=== PATIENT | male | born 1960 | race Caucasian/White ===

== ENCOUNTER 2017-05-01 23:25 | Inpatient (IN) | payer BC ==
[~2017-05-01] VITALS: Ht 182.9 cm; Wt 103.1 kg
[2017-05-01 23:55] VITALS: BP_SYST 145
[2017-05-02 01:43] LABS: BASOPHILS % (AUTO) 0.5 % (0.0-2.0); EOSINOPHILS # (AUTO) 0.2 K/uL (0.0-0.4); EOSINOPHILS % (AUTO) 2.8 % (0.0-4.0); HEMATOCRIT 45.5 % (36-54); HEMOGLOBIN 14.8 g/dL (14.0-18.0); LYMPHOCYTES # (AUTO) 2.1 K/uL (1.0-5.5); LYMPHOCYTES % (AUTO) 27.2 % (20.5-51.5); MEAN CORPUSCULAR HEMOGLOBIN 30 pg (27-31); MEAN CORPUSCULAR HGB CONC 32 % (32-36); MEAN CORPUSCULAR VOLUME 94 fL (79.0-98.0); MONOCYTES # (AUTO) 0.7 K/uL (0.0-1.0); MONOCYTES % (AUTO) 8.5 % (1.7-9.3); NEUTROPHILS # (AUTO) 4.8 K/uL (1.8-7.7); PLATELET COUNT (AUTO) 113 K/uL (130-430); RED BLOOD CELL COUNT(AUTO) 4.86 MIL/uL (4.2-6.2); RED CELL DISTRIBUTION WIDTH 14.8 % (9.0-15.0); WHITE BLOOD COUNT (AUTO) 7.8 K/uL (4.8-10.8)
[2017-05-02 01:54] LABS: CALCIUM 9.1 mg/dL (8.4-11.0); CREATININE 1.19 mg/dL (0.55-1.30); POTASSIUM 4.4 mmol/L (3.5-5.1)
[2017-05-02 02:08] LABS: ALBUMIN 3.9 g/dL (3.4-4.8); TOTAL BILIRUBIN 0.5 mg/dL (0.0-1.0); TOTAL PROTEIN, SERUM 7.3 g/dL (6.4-8.3)
[2017-05-02] MEDS ORDERED: ESCI20TA PO (05:43)
[2017-05-02] MEDS ORDERED: SPIR25TA4 PO (05:44)
[2017-05-02] MEDS ORDERED: LIP20 PO (05:46)
[2017-05-02] MEDS ORDERED: LOSA50TA3 PO (05:50)
[2017-05-02] MEDS ORDERED: TAMS-11 PO (05:50)
[2017-05-02] MEDS ORDERED: CARV6.2554 PO (05:50)
[2017-05-02] MEDS ORDERED: GABA-531 PO (05:51)
[2017-05-02] MEDS ORDERED: ARIP5TAB10 PO (05:51)
[2017-05-02] MEDS ORDERED: PHE25 PO (05:55)
[2017-05-02] MEDS ORDERED: CAT.1 PO (05:55)
[2017-05-02] MEDS ORDERED: TRAZ-126 PO (05:55)
[2017-05-02] MEDS ORDERED: LORA2TAB95 PO (05:56)
[2017-05-02] MEDS ORDERED: ACET325T53 PO (05:57)
[2017-05-02] MEDS ORDERED: MAGN400O4 PO (05:58)
[2017-05-02] MEDS ORDERED: ANT30 PO (06:00)
[2017-05-02 06:20] VITALS: BP_SYST 144
[2017-05-02 08:00] VITALS: BP_SYST 144
[2017-05-02] MEDS ORDERED: GADOPENTETATE DIMEGLUMINE 15 ML VIAL IV ONE (09:30)
[2017-05-02] MEDS ORDERED: PROMETHAZINE HCL 25 MG TABLET PO PRN (09:45)
[2017-05-02] MEDS ORDERED: traZODone HCL 50 MG TABLET (DESYREL) PO PRN (09:45)
[2017-05-02] MEDS ORDERED: LORazepam 1 MG TABLET PO PRN (09:45)
[2017-05-02] MEDS ORDERED: ACETAMINOPHEN 325 MG TABLET PO PRN (09:45)
[2017-05-02] MEDS ORDERED: MAG-AL HYDROX/SIMETH 30 ML UDC PO PRN (09:45)
[2017-05-02] MEDS ORDERED: MILK OF MAGNESIA 30 ML UDC PO PRN (09:45)
[2017-05-02] MEDS: ASPIRIN 81 MG TABLET(ECOTRIN) PO SCH (11:49)
[2017-05-02 11:53] VITALS: BP_SYST 136
[2017-05-02] MEDS: GABAPENTIN 300 MG CAPSULE PO SCH ×2 (15:04→21:18)
[2017-05-02 16:45] VITALS: BP_SYST 152
[2017-05-02] MEDS: cloNIDine HCL 0.1 MG TABLET PO PRN (17:11)
[2017-05-02 19:36] VITALS: BP_SYST 116
[2017-05-02] MEDS: ATORVASTATIN 20 MG TABLET PO SCH (21:18)
[2017-05-02] MEDS: CARVEDILOL 6.25 MG TABLET (COREG) PO SCH (21:19)
[2017-05-03] VITALS (7 sets, daily range): BP systolic 120–160
[2017-05-03 08:35] LABS: CHOLESTEROL 134 mg/dL (<200); HDL CHOLESTEROL 46 mg/dL (>45); LDL CHOLESTEROL 69 mg/dL (<100); TRIGLYCERIDES 74 mg/dL (30-150)
[2017-05-03] MEDS: ARIPiprazole 5 MG TAB PO SCH (09:00)
[2017-05-03] MEDS ORDERED: LOSARTAN POTASSIUM 50 MG TABLET (COZAAR) PO SCH (09:00)
[2017-05-03] MEDS ORDERED: ESCITALOPRAM OXALATE 10 MG TABLET PO SCH (09:00)
[2017-05-03] MEDS: CITALOPRAM HYDROBROMIDE 20 MG TABLET PO SCH (09:01)
[2017-05-03] MEDS: TAMSULOSIN HCL 0.4 MG CAP PO SCH (09:01)
[2017-05-03] MEDS: CARVEDILOL 6.25 MG TABLET (COREG) PO SCH ×2 (09:02→21:26)
[2017-05-03] MEDS: SPIRONOLACTONE 25 MG TABLET (ALDACTONE) PO SCH (09:02)
[2017-05-03] MEDS: ASPIRIN 81 MG TABLET(ECOTRIN) PO SCH (09:03)
[2017-05-03] MEDS: GABAPENTIN 300 MG CAPSULE PO SCH ×3 (09:03→21:26)
[2017-05-03] MEDS: cloNIDine HCL 0.1 MG TABLET PO PRN (16:11)
[2017-05-03] MEDS: ATORVASTATIN 20 MG TABLET PO SCH (21:25)
[2017-05-03] MEDS: VALSARTAN 160 MG TABLET (DIOVAN) PO SCH (21:26)
[2017-05-04 04:09] VITALS: BP_SYST 104
[2017-05-04 07:14] LABS: BASOPHILS % (AUTO) 0.5 % (0.0-2.0); EOSINOPHILS # (AUTO) 0.2 K/uL (0.0-0.4); EOSINOPHILS % (AUTO) 2.9 % (0.0-4.0); HEMATOCRIT 45.5 % (36-54); HEMOGLOBIN 14.7 g/dL (14.0-18.0); LYMPHOCYTES # (AUTO) 1.7 K/uL (1.0-5.5); LYMPHOCYTES % (AUTO) 26.1 % (20.5-51.5); MEAN CORPUSCULAR HEMOGLOBIN 30 pg (27-31); MEAN CORPUSCULAR HGB CONC 32 % (32-36); MEAN CORPUSCULAR VOLUME 94 fL (79.0-98.0); MONOCYTES # (AUTO) 0.7 K/uL (0.0-1.0); MONOCYTES % (AUTO) 11.1 % (1.7-9.3); NEUTROPHILS % (AUTO) 59.4 % (40.0-70.0); PLATELET COUNT (AUTO) 117 K/uL (130-430); RED BLOOD CELL COUNT(AUTO) 4.83 MIL/uL (4.2-6.2); RED CELL DISTRIBUTION WIDTH 14.2 % (9.0-15.0); WHITE BLOOD COUNT (AUTO) 6.6 K/uL (4.8-10.8)
[2017-05-04 07:27] LABS: CALCIUM 9.3 mg/dL (8.4-11.0); CREATININE 0.98 mg/dL (0.55-1.30); POTASSIUM 4.6 mmol/L (3.5-5.1)
[2017-05-04 08:23] VITALS: BP_SYST 130
[2017-05-04] MEDS: TAMSULOSIN HCL 0.4 MG CAP PO SCH (08:49)
[2017-05-04] MEDS: CARVEDILOL 6.25 MG TABLET (COREG) PO SCH (08:50)
[2017-05-04] MEDS: VALSARTAN 160 MG TABLET (DIOVAN) PO SCH (08:50)
[2017-05-04] MEDS: ASPIRIN 81 MG TABLET(ECOTRIN) PO SCH (08:50)
[2017-05-04] MEDS: GABAPENTIN 300 MG CAPSULE PO SCH (08:50)
[2017-05-04] MEDS: ARIPiprazole 5 MG TAB PO SCH (08:51)
[2017-05-04] MEDS: CITALOPRAM HYDROBROMIDE 20 MG TABLET PO SCH (08:51)
[2017-05-04] MEDS: SPIRONOLACTONE 25 MG TABLET (ALDACTONE) PO SCH (08:51)
[2017-05-04 12:20] VITALS: BP_SYST 143
[2017-05-04 13:51] VITALS: BP_SYST 143
== END 2017-05-04 14:45 | disposition home or self-care (01) | DRG 65 ==
LOC: SED 23:25 → STU 05-02 05:10
PROVIDERS: ADMIT Family Medicine; ATTEND Family Medicine
DX: I63.9 Cerebral infarction, unspecified (principal); F31.60 Bipolar disorder, current episode mixed, unspecified; R29.810 Facial weakness; R27.0 Ataxia, unspecified; I10 Essential (primary) hypertension; Z79.899 Other long term (current) drug therapy; J44.9 Chronic obstructive pulmonary disease, unspecified
CPT/HCPCS: 36415; 70450-TC; 70553; 71010; 80048; 80053; 80061; 83735-TC; 84484; 85025; 85610-TC; 87081; 93005; 93880; 99285; A9579